=== PATIENT | male | born 1975 | race American Indian/Alaskan Native ===

== ENCOUNTER 2022-03-19 08:59 | Emergency (ER) | payer OTHER ==
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
[2022-03-19] MEDS ORDERED: ACETAMINOPHEN 500 MG TAB PO ONE (12:04)
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
[2022-03-19 12:57] VITALS: BP 190/128
== END 2022-03-19 13:00 | disposition home or self-care (01) ==
LOC: ED 08:59
DX: M79.18 Myalgia, other site (principal); M54.9 Dorsalgia, unspecified; V87.7XXA Person injured in collision between other specified motor vehicles (traffic), initial encounter; Y93.89 Activity, other specified; Y92.488 Other paved roadways as the place of occurrence of the external cause; Y99.8 Other external cause status
CPT/HCPCS: 72100; 99283